=== PATIENT | female | born 1965 | race Caucasian/White ===

== ENCOUNTER → 2020-01-20 10:14 | Outpatient (CLI) | payer BC, SELFPAY ==
--- NOTE | ~2020-01-20 | MM_ITS ---
EXAMINATION: MM screening [facility] BI w stefany HISTORY: Screening mammogram TECHNIQUE: Craniocaudal and mediolateral oblique 3-D tomosynthesis images were obtained and synthetic 2-D images were generated. CAD analysis was submitted and interpreted. COMPARISON: 11/19/2018, 11/12/2017 bilateral digital screening mammogram examinations BREAST PARENCHYMAL COMPOSITION: There are scattered areas of fibroglandular density. FINDINGS: Possible bilateral masses in the upper outer quadrants. Bilateral diagnostic mammography is recommended, with ultrasound if required. IMPRESSION: 1. Possible bilateral upper outer quadrant breast masses 2. Bilateral diagnostic mammography and bilateral breast ultrasound examination are recommended. BI-RADS Category 0: Incomplete: Needs additional imaging evaluation. Reviewed, dictated and finalized at location A.
== END ==
PROVIDERS: Visit Provider Obstetrics & Gynecology
DX: Z12.31 Encounter for screening mammogram for malignant neoplasm of breast (principal); R92.8 Other abnormal and inconclusive findings on diagnostic imaging of breast
CPT/HCPCS: 77063; 77067

== ENCOUNTER → 2020-02-05 09:08 | Outpatient (CLI) | payer BC, SELFPAY ==
--- NOTE | ~2020-02-05 | MMUS_ITS ---
EXAMINATION: MM diagnostic mammo BI, US breast BI limited HISTORY: Follow-up breast asymmetries. TECHNIQUE: Additional 3-D tomosynthesis images of the breasts were performed and synthetic 2-D images were generated. CAD analysis was submitted and interpreted. High resolution bilateral breast ultraso und was performed. COMPARISON: Comparison to multiple prior studies sequentially, with oldest reviewed study dated 09/20. BREAST PARENCHYMAL COMPOSITION: BREAST PARENCHYMAL COMPOSITION: There are scattered areas of fibroglandular density. FINDINGS: MAMMOGRAPHIC FINDINGS: There are persistent asymmetries laterally in both breasts, although no discrete mass, architectural distortion or suspicious calcifications are seen. ULTRASOUND: Bilateral breast ultrasound: There are multiple bilateral simple and complicated cysts of the breasts. The largest measures proxim ally 7 mm at 1:00 position of the left breast, 6 cm from the nipple. No suspicious masses to suggest malignancy. IMPRESSION: 1. No evidence for malignancy in either breast. Benign findings. 2. Routine yearly screening mammogram and regular clinical breast examination are recommended. BI-RADS Category 2: Benign finding(s). Reviewed, dictated and finalized at location A. IMPRESSION: 1. No evidence for malignancy in either breast. Benign findings. 2. Routine yearly screening mammogram and regular clinical breast examination a re recommended. BI-RADS Category 2: Benign finding(s).
== END ==
PROVIDERS: Visit Provider Obstetrics & Gynecology
DX: N63.0 Unspecified lump in unspecified breast (principal)
CPT/HCPCS: 76642; 77066

== ENCOUNTER → 2021-01-26 10:38 | Outpatient (CLI) | payer BC, SELFPAY ==
--- NOTE | ~2021-01-26 | MM_ITS ---
EXAMINATION: MM screening [facility] BI w stefany HISTORY: Screening TECHNIQUE: Craniocaudal and mediolateral oblique 3-D tomosynthesis images were obtained and synthetic 2-D images were generated. CAD analysis was submitted and interpreted. COMPARISON: Comparison to multiple prior studies sequentially, with oldest reviewed study dated 06/2016. BREAST PARENCHYMAL COMPOSITION: There are scattered areas of fibroglandular density. FINDINGS: There is no evidence of suspicious mass, calcification, or architectural distortion to sugg est malignancy in either breast. There has been no suspicious interval change. IMPRESSION: 1. No mammographic evidence of malignancy. 2. Recommend routine screening mammography in one year. BI-RADS Category 1: Negative Reviewed, dictated and finalized at location A.
== END ==
PROVIDERS: PCP Internal Medicine; Visit Provider Obstetrics & Gynecology
DX: Z12.31 Encounter for screening mammogram for malignant neoplasm of breast (principal)
CPT/HCPCS: 77063; 77067

== ENCOUNTER → 2022-06-01 13:22 | Outpatient (CLI) | payer BC, SELFPAY ==
--- NOTE | ~2022-06-01 | MM_ITS ---
EXAMINATION: MM screening [facility] BI w tsefany HISTORY: Screening mammogram TECHNIQUE: Craniocaudal and mediolateral oblique 3-D tomosynthesis images were obtained and synthetic 2-D images were generated. CAD analysis was submitted and interpreted. COMPARISON: 01/26/2021, 02/05/2020, 01/20/2020, 11/19/2018 BREAST PARENCHYMAL COMPOSITION: There are scattered areas of fibroglandular density. FINDINGS: No suspicious mass, calcification, or architectural distortion are identified in either margo ast to suggest malignancy. There has been no suspicious interval change. IMPRESSION: 1. No mammographic evidence of malignancy. 2. Recommend routine screening mammography in one year. BI-RADS Category 1: Negative Reviewed, dictated and finalized at location A. HER SELECTION SPECIALIST
== END ==
PROVIDERS: PCP Internal Medicine; Visit Provider Obstetrics & Gynecology
DX: Z12.31 Encounter for screening mammogram for malignant neoplasm of breast (principal)
CPT/HCPCS: 77063; 77067

== ENCOUNTER 2022-12-02 12:39 | Emergency (ER) | payer MEDICARE, BC, SELFPAY ==
--- NOTE | ~2022-12-02 | XR_ITS ---
XR ankle LT min 3V 12/02/2022 13:22 INDICATION: Left ankle pain PROCEDURE: 4 views left ankle COMPARISON: No prior studies for comparison. FINDINGS: Fracture, dislocation or subluxation is not identified. Ankle mortise intact. Talar dome is normal. Mild lateral soft tissue swelling. No foreign bodies are identified. IMPRESSION: 1: NO ACUTE BONE OR JOINT ABNORMALITY IDENTIFIED. Reviewed, dictated and finalized at location A.
[2022-12-02 12:54] VITALS: BP 124/68; PULSE 55; RESP 18; TEMP 36.9; O2SAT 99
--- NOTE | 2022-12-02 13:09 | ED.LOWEXIN ---
HPI - Extremity Injury (Lower) General Chief Complaint: Extremity Injury, Lower Stated Complaint: Left Foot Pain Time Seen by Provider: 12/02/22 13:00 Source: patient Mode of arrival: ambulatory Limitations: no limitations History of Present Illness HPI Narrative: Paulette is a 57-year-old female patient presenting to the clinic today with complaints of left ankle/foot pain 2-3 days. States no known injury however she has been standing on the side of a hill feeding and dog and thinks he may have injured it at that time. Is having pain and swelling in the left ankle and foot. Denies any known history of gout. No history of osteoarthritis. Related Data Home Medications Medication Instructions Recorded Confirmed amlodipine 5 mg tablet 5 mg PO DAILY 03/13/22 12/02/22 aspirin 325 mg tablet 325 mg PO DAILY 03/13/22 12/02/22 biotin 5,000 mcg disintegrating 10,000 mcg PO DAILY 03/13/22 12/02/22 tablet cyanocobalamin (vitamin B-12) 2,500 mcg PO DAILY 03/13/22 12/02/22 2,500 mcg tablet escitalopram oxalate 5 mg tablet 5 mg PO DAILY 03/13/22 12/02/22 losartan 100 mg tablet 100 mg PO DAILY 03/13/22 12/02/22 omeprazole 20 mg capsule,delayed 20 mg PO DAILY 03/13/22 12/02/22 release oxybutynin chloride 10 mg 10 mg PO DAILY 03/13/22 12/02/22 tablet,extended release 24 hr rosuvastatin 10 mg tablet 10 mg PO DAILY 03/13/22 12/02/22 Allergies Allergy/AdvReac Type Severity Reaction Status Date / Time iodine Allergy Severe Hives Verified 12/02/22 12:52 SHELLFISH Allergy Severe Hives Uncoded 12/02/22 12:52 IODINE OR RELATED PRODUCT Allergy Unknown Hives Uncoded 12/02/22 12:52 BOTH TOPICAL AN IV Review of Systems Review of Systems: Pertinent positives per HPI. Patient denies any fever, chills, rash, headache, visual changes, dizziness, cough, runny nose, sore throat, shortness of breath, chest pain, palpitations, nausea, vomiting, diarrhea, constipation, abdominal pain, or any urinary issues. [facility] Past Medical History Medical History (Updated 12/02/22 @ 13:31 by Leonard Batista, ANDRÉS) Abnormal mammogram 01-20-2020 bilateral breast masses Bilateral dx mammogram and bilateral US done 02/05/2020 negative recommend annual screenings Anxiety and depression High cholesterol History of hypertension controlled with meds Overactive bladder Screening mammogram, encounter for Stroke (02/22/15) February 2015 - no paralysis - short term memory loss Surgical History Surgical History History of arthroscopy knee and shoulder History of endometrial ablation 04/17/07 hscope endometrial ablation/tubal ligation History of head, eyes, ears, nose, and throat (HEENT) surgery (10/15/06) eye surgery--scar tissue History of rotator cuff surgery (12/07/02) History of tubal ligation (04/17/07) Hx of cholecystectomy (09/15/04) S/P thyroid biopsy (06/24/15) benign Family History Family History Mother Hypertension Father Hypertension Grandparent H/O ovarian cancer Maternal grandmother Heart disease maternal grandmother Social History Social History Smoking status: Never smoker Tobacco type: cigarettes Smoking end date: 06/24/99 Alcohol intake: current Alcohol use details: social 1 per month Substance use: never Substance use type: does not use Living arrangements: other Additional living arrangements comments: Occupation/Education: occupation Additional occupation/education comments: homemaker Gender identity (if verbalized by the patient): Female Sexual Orientation (if Verbalized by the Patient): Straight or Heterosexual Comments At the time of my signature, I reviewed and agree with the nursing past medical, surgical, social, and family history. There is no relevant family history per
== END 2022-12-02 13:35 | disposition home or self-care (01) ==
PROVIDERS: Emergency Provider Nurse Practitioner Family; PCP Internal Medicine
DX: M25.572 Pain in left ankle and joints of left foot (principal); M25.472 Effusion, left ankle; Z87.891 Personal history of nicotine dependence; E78.00 Pure hypercholesterolemia, unspecified; I10 Essential (primary) hypertension; Z86.73 Personal history of transient ischemic attack (TIA), and cerebral infarction without residual deficits
CPT/HCPCS: 73610; 99213; G0463

== ENCOUNTER 2024-08-08 08:33 | Outpatient (CLI) | payer BC, MEDICARE, SELFPAY ==
--- NOTE | ~2024-08-08 | MM_ITS ---
EXAMINATION: MM screening [facility] BI w stefany HISTORY: Screening TECHNIQUE: Craniocaudal and mediolateral oblique 3-D tomosynthesis images were obtained and synthetic 2-D images were generated. CAD analysis was submitted and interpreted. COMPARISON: Comparison to multiple prior studies sequentially, with oldest reviewed study dated 11/12. BREAST PARENCHYMAL COMPOSITION: Not dense: There are scattered areas of fibroglandular density. FINDINGS: There is no evidence of suspicious mass, calcification, or architectural distortion to sugg est malignancy in either breast. There has been no suspicious interval change. IMPRESSION: 1. No mammographic evidence of malignancy. 2. Recommend routine screening mammography in one year. BI-RADS Category 1: Negative Reviewed, dictated and finalized at location B. [employer]
== END 2024-08-08 08:34 | disposition home or self-care (01) ==
LOC: MICIMG 08:34
PROVIDERS: PCP Internal Medicine; Visit Provider Internal Medicine
DX: Z12.31 Encounter for screening mammogram for malignant neoplasm of breast (principal)
CPT/HCPCS: 77063; 77067

== ENCOUNTER 2024-11-12 15:12 | Outpatient (CLI) | payer BC, MEDICARE, SELFPAY ==
--- NOTE | ~2024-11-12 | DEXA_ITS ---
Bone Density Report Name: GILBERTO POWER Age: 59 Sex: Female Ethnicity: White Date of : 1965 Indication: postmenopausal; screening for osteoporosis; Referring Provider: JAMIL, HANNAH [place] Study: Bone densitometry was performed. Exam Date: November 12, 2024 Accession number: [id number] Bone Density: Region BMD T-score Z-score Classification AP Spine(L1-L4) 0.844 -1.8 -0.3 Osteopenia Femoral Neck (Left) 0.646 -1.8 -0.5 Osteopenia Total Hip (Left) 0.740 -1.7 -0.6 Osteopenia Femoral Neck (Right) 0.631 -2.0 -0.6 Osteopenia Total Hip (Right) 0.785 -1.3 -0.3 Osteopenia Total Hip Mean 0.763 -1.5 -0.5 Osteopenia World Health Organization criteria for BMD impression classify patients as: Normal (T-score at or above -1.0), Osteopenia (T-score between -1.0 and -2.5), or Osteoporosis (T-score at or below -2.5). 10-year Fracture Risk(1): Major Osteoporotic Fracture 9.4% Hip Fracture 1.1% Reported Risk Factors: [place] (), Neck BMD=0.631, BMI=29.9 (1) FRAX(R) Version 3.08. Fracture probability calculated for an untreated patient. Fracture probability may be lower if the patient has received treatment. Clinical Information Provided by Patient: Has used the following medications: Vitamin D Patient maximum height was 64 Menopause Age: 46 No regular weight bearing exercise Drinks caffeinated beverages Onset of menses at age 12 Number of children 2 Impression: The patient has low bone mass, based on the Right Femoral Neck T-score. The patient has an estimated ten-year risk of hip fracture of 1.1% and an estimated ten-year risk of major fracture of 9.4%, based on the WHO FRAX algorithm. Discussion: BONE DENSITY IS LOW AT ONE OR MORE SKELETAL SITES. This patient's lowest T-score is low at one or more skeletal sites. It meets the World Health Organization's (WHO) criteria for ?low bone mass? (T-score between -1.0 and -2.5). The patient's 10-year risk of fracture as calculated by FRAX is less than the threshold where pharmacological therapy is recommended by the National Osteoporosis Foundation (NOF). However, all treatment decisions require clinical judgment and consideration of individual patient factors, including patient preferences, comorbidities, previous drug use, risk factors not captured in the FRAX model (e.g., frailty, falls, vitamin D deficiency, increased bone turnover, interval significant decline in bone density) and possible under or overestimation of fracture risk by FRAX. The patient should follow a healthful lifestyle (good nutrition with adequate calcium and vitamin D, and appropriate weight-bearing exercise). Follow-Up: Consider repeating this study in 2 to 3 years to reassess this patient's status, or sooner if there is some new clinical indication. Reported by: SARAHI on 11/12/2024 3:45:00 PM. Reviewed, dictated and finalized at location A.
--- OUTSIDE RECORDS SUMMARY | 2024-11-12 15:16 | XMS_ITS | Clinical Summary ---
Author Organization [facility] Address [facility] [place] [address] Care Team Providers Care Inspector Casing Name Role Phone Lluvia Vaughn MD Primary Care Provider + Allergies Active Allergy Reactions Criticality Noted Date Comments Iodine Hives Medium 04/12/2020 Shellfish Derived Hives Medium 04/12/2020 Sulfa (Sulfonamide Antibiotics) Hives Medium 03/25 Medications omeprazole (PriLOSEC) 20 mg capsule 03/10/20 20 Active aspirin 325 mg enteric coated tablet aspirin 325 mg tablet,delayed release Active losartan (COZAAR) 100 mg tablet 100 mg daily 02/22/20 20 Active varicella-zos ter (SHINGRIX) 50 mcg/0.5 mL vaccine Shingrix (PF) 50 mcg/0.5 mL intramuscular suspension, kit Active amLODIPine (NORVASC) 5 mg tabletIndicat ions:hyperten misty Take 1 tablet (5 mg total) by mouth daily 30 tablet 11/02/19 22 Active oxybutynin XL (DITROPAN-XL) 10 mg 24 hr tablet TAKE 1 (ONE) TABLET BY MOUTH DAILY 11/28/19 22 Active rosuvastatin (CRESTOR) 10 mg tablet Take 10 mg by mouth daily 11/10/19 22 Active loratadine 10 mg capsule Take by mouth Activ e multivitamin capsule Take 1 capsule by mouth daily Active escitalopram (LEXAPRO) 5 mg tablet Take 5 mg by mouth daily 01/18/20 22 Active biotin 2,500 mcg capsule Take 2 tablets by mouth Active cyanocobalami n (Vitamin B-12) 1,000 mcg tabletIndicat ions:Preventi on of Vitamin B12 Deficiency Take 1,000 mcg by mouth daily Active metoprolol XL (TOPROL-XL) 50 mg extended release tablet metoprolol succinate ER 50 mg tablet,extended release 24 hr 022 Discontinued Active Problems Problem Noted Date Diagnosed Date Cognitive decline 04/12/2020 Assessment & Plan (05/13/2020 11:26 AM [facility] PHYSICIAN): Patient has a history of static cognitive decline following a stroke in 2015. Contemporary neuroimaging demonstrates chronic ischemic changes nothing acute, and laboratory assessment for medically reversible etiologies for memory impairment are normal. At this point I have counseled patient that unfortunately I do not have much to offer her for the cognitive impairment which she finds persists following her prior stroke 5 years ago. I see no evidence of new interval neurologic demise. Supportive care is indicated from the neurological standpoint. I will see her back in the office as needed. Assessment & Plan (04/12/2020 9:00 AM CDT): Patient has history of chronic cognitive decline following ischemic cerebral infarction in 2014. She notices deficits with calculations, getting occasionally lost in familiar surroundings, and difficulty making financial calculations ultimately leading to the discharge from her employment. She has not noticed any evolution of symptoms or improvement or worsening since 2015. Symptoms have remained essentially static. I will obtain an MRI brain to assess potential etiologies be on the stroke to account for her ongoing cognitive difficulties. Also obtain laboratory assessment looking for medically reversible causes of cognitive impairment. I will see her back thereafter. History of stroke 04/12/2020 Assessment & Plan (05/13/2020 11:26 AM [facility] PHYSICIAN): Patient will continue on aspirin for cerebrovascular prophylaxis in addition anti hypertension and anti lipid therapies. Assessment & Plan (04/12/2020 9:01 AM CDT): Patient reports history of prior cerebral ischemic infarction in 2014 for which she was hospitalized at [facility]. She continues at this time on aspirin for cerebrovascular prophylaxis in addition to any hypertension and anti lipid therapies. She does not have a history of diabetes and is a former tobacco user. Modifiable and non modifiable cerebrovascular risk factors were reviewed with patient for Education of future cerebrovascular prophylaxis. Surgical History Surgery Date Site/Laterality Comments CHOLECYSTECTOMY KNEE SURGERY SHOULDER SURGERY EYE SURGERY Medical History Medical History Date Comments Stroke (cerebrum) (HCC) Hypertension Depression High cholesterol Family History Medical History Relation Name Comments Depression Brother 1 Hyperlipidemia Brother 1 Hypertension Brother 1 PTSD Brother 1 Glaucoma Brother 2 Hypotension Father Kidney disease Father Aneurysm Mother COPD Mother Depression Mother Hypertension Mother Depression Sister 1 Hypertension Sister 1 Seizures Sister 1 Bipolar disorder Sister 2 Depression Sister 2 Hypertension Sister 2 Depression Sister 3 Hyperlipidemia Sister 3 Hypertension Sister 3 Relation Name Status Comments Brother 1 Alive Brother 2 Father Mother Sister 1 Alive Sister 2 Alive Sister 3 Alive Social History Tobacco Use Types Packs/Day Years Used Date Smoking Tobacco: Former Cigarettes Q uit: 12/22/2004 Smokeless Tobacco: Never Personal Safety Answer Date Recorded Getting School Help Needed Not on file 09/06 Comments Unknown Sex and Gender Information Value Date Recorded Sex Assigned at Not on file Legal Sex Female 6:35 PM [facility] PHYSICIAN Gender Identity Female 04/28/2020 7:31 AM [facility] PHYSICIAN Sexual Orientation Straight 04/28/2020 7: 31 AM [facility] PHYSICIAN Obstetrics History Last Filed Vital Signs Vital Sign Reading Time Taken Comments Blood Pressure 102/76 02/19/2022 12:47 PM CDT Pulse 74 02/19/2022 12:47 PM CDT Temperature 36.6 C (97.8 F) 05/13/2020 10:42 AM [facility] PHYSICIAN Respiratory Rate 15 11/01/2021 1:15 PM CDT Oxygen Saturation 99% 02/19/2022 12:47 PM CDT Inhaled Oxygen Concentration - - Weight 78 kg (172 lb) 02/19/2022 12:47 PM CDT Height 160 cm (5' 3 ) 02/19/2022 12:47 PM CDT Body Mass Index 30.47 02/19/2022 12:47 PM CDT Plan of Treatment Health Maintenance Due Date Last Done Comments Breast Cancer Screening-Mammogram 1965 Cervical Cancer Screening 1965 Colon Cancer Screening-Colonoscopy 1965 Depression Screening 1965 Hepatitis C Screening 1963 Hepatitis B Screening 1981 Regular Well Visit/Exam 18-64 1981 Influenza Vaccine (Season Ended) 2025 05/14/2019, 04/09/2018, 06/07/2017, Additional history exists DTaP/Tdap/Td Vaccine (2 - Td or Tdap) 07/24/2026 07/24/2016 Zoster Vaccine Completed 05/14/2019, 01/06/2019 Pneumococcal vaccine <65 Aged Out No longer eligible based on patient's age to complete this topic Insurance [place] [address] [place] [address] [employer] [place] Care Teams Inspector Casing Relationship Specialty Start Date End Date Lluvia Vaughn MD PCP - General Internal Medicine 03/11/20
--- OUTSIDE RECORDS SUMMARY | 2024-11-12 15:16 | XMS_ITS | Continuity of Care Document ---
Author Organization [facility] Address [address] [facility] [facility] [address] [place] [address] Phone Care Team Providers Care Leadership Program Intern Name Role Phone Berta Meyer Unavailable Unavailable Advance Directives Directive Yes / No Effective Date File Name No Information Encounters Encounter Description Practice Location Reason(s) For Visit Diagnoses Date Provider Providers Copied on Encounter [facility], [address] [place], [place], [id number], [place] tel:[phone] [facility] No Information Dec-0 1-[address] [place] [place]. [address] [facility] , [address], [place], [address], [place]. tel:[phone] Family History Family Member Type Diagnosis Age At Onset No Information Payers Payer name Insurance type Covered republican ID Authoriza tion(s) No Information Social History Type Description Quantity Date Captured Comments Sex Female Smoking Status No Information Chief Complaint And Reason For Visit No Information Reason For Referral Reason For Referral No Information History Of Present Illness Encounter Date Complaint History Of Prese nt Illness No Information Functional Status Date Functional Assessmen t No Information Instructions Date Instruction Additional Infor mation No Information Assessments Type Assessment Date No Information Patient Care Teams Name Effective Dates (start - stop) Status Members No Information
--- OUTSIDE RECORDS SUMMARY | 2024-11-12 15:16 | XMS_ITS | Continuity of Care Document ---
Author Organization [facility] Address [address] [place] [address] Phone Care Team Providers Care Educational Consultant Name Role Phone Lluvia Vaughn MD Unavailable Unavailable Allergies, Adverse Reactions, Alerts Substance Reaction Status Criticality lisinopril Cough Active No Information estradiol Active No Information Sulfa (Sulfonamide Antibiotics) Active No Information iodine Hives Active No Information Medications Medication Instructions Dosage Effective Dates (start - stop) Status Comments oxybutynin chloride ER 10 mg tablet,extended release 24 hr take 1 tablet by oral route every day 10 MG - Active Vitamin B-12 1,000 mcg tablet take 1 tablet by mouth once daily - Active AMLODIPINE BESYLATE 5 MG TAB TAKE 1 TABLET BY MOUTH EVERY DAY - Active Cozaar 100 mg tablet TAKE 1 TABLET DAILY - Active omeprazole 20 mg capsule,delayed release take 1 capsule by oral route every day 30 minutes to 1 hour before a meal 20 MG - Active Vitamin D3 125 mcg (5,000 unit) tablet take 1 tablet by oral route every day 1 tablet - Active bupropion HCl XL 300 mg 24 hr tablet, extended release TAKE 1 TABLET DAILY - Active ROSUVASTATIN CALCIUM 10 MG TAB TAKE 1 TABLET BY MOUTH EVERY DAY - Active ESCITALOPRAM 5 MG TABLET TAKE 1 TABLET BY MOUTH EVERY DAY - Active albuterol sulfate HFA 90 mcg/actuation aerosol inhaler TAKE 2 PUFFS BY MOUTH EVERY 4 TO 6 HOURS NEEDED - Active biotin 10 mg tablet 1 tablet daily - A ctive aspirin 325 mg tablet take 1 tablet by o ral route every day 325 MG - Active Procedures Procedure Date Pt inelig neg mahad monoconrado MED LIST DOCD IN [facility] OFFICE [id number] Visit Complexity Inherent To E/ 2024 BODY MASS INDEX DOCD SYST BP LT 130 MM HG DIAST BP < 80 MM HG PREVENTATIVE-EST: 40-64 SYST BP >= 140 MM HG6 IT DIAST BP >= 90 MM HG Pt inelig neg cecilcayetano otoole OFFICE [id number] Visit Complexity Inherent To E/ 2023 BODY MASS INDEX DOCD SYST BP GE 130 - 139MM HG DIAST BP < 80 MM HG OFFICE [id number] BODY MASS INDEX DOCD SYST BP LT 130 MM HG DIAST BP < 80 MM HG PREVENTATIVE-EST: 40-64 Pt inelig neg mahad sydnie OFFICE [id number] BODY MASS INDEX DOCD SYST BP GE 130 - 139MM HG DIAST BP < 80 MM HG EAR WASH, REMOVAL IMPACTED CERUMEN Requi ring Instrumentation PREVENTATIVE-EST: 40-64 BODY MASS INDEX DOCD SYST BP LT 130 MM HG DIAST BP < 80 MM HG OFFICE XTAAP-IKO-ZOYHEVEG BODY MASS INDEX DOCD SYST BP LT 130 MM HG DIAST BP < 80 MM HG Pt inelig neg scrn deprconrado OFFICE [id number] BODY MASS INDEX DOCD SYST BP LT 130 MM HG DIAST BP < 80 MM HG ROUTINE VENIPUNCTURE COVID-19, Amplified Probe Technique OFFICE [id number] BODY MASS INDEX DOCD SYST BP GE 130 - 139MM HG DIAST BP < 80 MM HG Pt inelig neg scrn deprconrado PREVENTATIVE-EST: 40-64 BODY MASS INDEX DOCD SYST BP GE 130 - 139MM HG DIAST BP < 80 MM HG Pt inelig neg scrn sydnie OFFICE [id number]-[id number] BODY MASS INDEX DOCD SYST BP GE 130 - 139MM HG DIAST BP 80-89 MM HG Brief Emotional/Behavioral A ssessment, With Scoring/Doct, [facility] screen doc OFFICE [id number] BODY MASS INDEX DOCD SYST BP LT 130 MM HG DIAST BP < 80 MM HG Pt inelig neg scrn deprconrado PREVENTATIVE-EST: 40-64 BODY MASS INDEX DOCD SYST BP GE 130 - 139MM HG DIAST BP 80-89 MM HG OFFICE [id number]-NJV-[id number] BODY MASS INDEX DOCD SYST BP LT 130 MM HG DIAST BP < 80 MM HG Pt inelig neg scrn sydnie OFFICE [id number] BODY MASS INDEX DOCD SYST BP GE 130 - 139MM HG DIAST BP 80-89 MM HG Pt inelig neg scrn depres OFFICE [id number] BODY MASS INDEX DOCD SYST BP GE 130 - 139MM HG DIAST BP 80-89 MM HG Advance Directives Directive Yes / No Effective Date File Name Life Support Not Answered N/A N/A Intubation Not Answered N/A N/A Antibiotics Not Answered N/A N/A IV Fluid Support Not Answered N/A N/A Tube Feed Not Answered N/A N/A Other Directive N/A N/A WARNING:The information contained in this section is historical and is provided for information only and does not constitute a legal document or any assurance that the information is still accurate. Please verify the information with the broderick of the legal document before using it for clinical purposes. Encounters Encounter Description Practice Location Reason(s) For Visit Diagnoses Date Provider Providers Copied on Encounter [facility], [address], [place], [place], [address] , tel: [phone] [facility] Asymptomatic menopausal state 5 Roderick Teixeira. [address] [place], [place], [address], [place]. tel:[phone] OFFICE [id number]-CGP-HL TAILED [facility], [address], [place], [place], [address] , tel: [phone] [facility] f/u chronic conditions (chief complaint) Hyperlipidemia, unspecified hyperlipidemia typeEssential hypertensionMajor depressive disorder in partial remission, unspecified whether recurrentGastroes ophageal reflux disease, esophagitis presence not specifiedCerebrov ascular diseaseHistory of CVA (cerebrovascular accident)Hypergly cemiaAcute pain of left kneeMultiple thyroid nodules 5 Roderick Teixeira. [address] [place], [place], [address], [place]. tel:[phone] Referring Provider: Lluvia Hoff, [address] [place], [address] . tel:[phone] [facility], [address], [place], [place], [address] , [place] tel: [phone] [facility] No Information 5 Roderick Teixeira. [address] [place], [address], [place]. tel:[phone] [facility], [address], [place], [place], [address] , tel: [phone] [facility] No Information 4 Roderick Teixeira. [address] [place], [place], [address], [place]. tel:[phone] [facility], [address], [place], [place], [address] , tel: [phone] [facility] No Information 4 Roderick Teixeira. [address] [place], [address], [place]. tel:[phone] PREVENTATIVE -EST: 40-64 [facility], [address], [place], [place], [address] , [place] tel: [phone] [facility] preventive exam (chief complaint)Chr onic Conditions (chief complaint) Body mass index [BMI] 29.0-29.9, adultHyperlipidem ia, unspecified hyperlipidemia typeEssential hypertensionRouti ne medical examPersistent coughThrombocytop eniaAsymptomatic menopausal stateEncounter for screening mammogram for malignant neoplasm of breast 4 Roderick Teixeira. [address] [place], [place], [address], [place]. tel:[phone] Referring Provider: Lluvia Hoff, [address] [place], [address] . tel:[phone] [facility], [address], [place], [place], [address] , tel: [phone] [facility] Essential hypertensionHyper lipidemia, unspecified hyperlipidemia typeMultiple thyroid nodulesBlood tests for routine general physical examination 4 Roderick Teixeira. [address] [place], [place], [address], [place]. tel:[phone] [facility], [address], [place], [place], [address] , tel: [phone] [facility] No Information 4 Roderick Lluvia. [address] [place], [place], [address], [place]. tel:[phone] [facility], [address], [place], [place], [address] , [place] tel: [phone] [facility] No Information 4 Roderick Teixeira. [address] [place], [address], [place]. tel:[phone] [facility], [address], [place], [place], [address] , tel: [phone] [facility] No Information 4 Kathy Aceves. [address] [place], [place], [address], [place]. tel:[phone] [facility], [address], [place], [place], [address] , [place] tel: [phone] [facility] No Information 4 Roderick Teixeira. [address] [place], [place], [address], [place]. tel:[phone] OFFICE NQYTT-LSY-TA TAILED [facility], [address], [place], [place], [address] , tel: [phone] [facility] Chronic conditions (chief complaint)Chr onic Conditions (chief complaint) Body mass index [BMI] 27.0-27.9, adultHyperlipidem ia, unspecified hyperlipidemia typeEssential hypertensionMajor depressive disorder in partial remission, unspecified whether recurrentGastroes ophageal reflux disease, esophagitis presence not specifiedCerebrov ascular diseaseHistory of CVA (cerebrovascular accident)Multiple thyroid nodules 4 Chaffeeluis Teixeira. [address] [place], [place], [address], [place]. tel:[phone] Referring Provider: Lluvia Hoff, [address] [place], [address] . tel:[phone] [facility], [address], [place], [place], [address] , tel: [phone] [facility] Essential hypertensionHyper glycemia October-0 4 Roderick Teixeira. [address] [place], [place], [address], [place]. tel:[phone] OFFICE FRSSP-FVK-GD PANDED [facility], [address], [place], [place], [address] , tel: [phone] [facility] Evaluate rash (chief complaint) Body mass index [BMI] 27.0-27.9, adultRash and nonspecific skin eruption Sep-2 4 Roderick Tiexeira. [address] [place], [place], [address], . tel:[phone] Referring Provider: Lluvia Hoff, [address] [place], [address] . tel:[phone] [facility], [address], [place], [place], [address] , tel:[phone] [facility] No Information 4 Kathy Aceves. [address] [place], [place], [address], . tel:[phone] [facility], [address], [place], [place], [address] , [place] tel:[phone] [facility] No Information 3 Roderick Teixeira. [address] [place], [place], [address], [place]. tel:[phone] PREVENTATIVE -EST: 40-64 [facility], [address], [place], [place], [address] , tel:[phone] [facility] preventive exam (chief complaint)Chr onic Conditions (chief complaint)chr onic conditions (chief complaint) Essential hypertensionGastr oesophageal reflux disease, esophagitis presence not specifiedMajor depressive disorder in partial remission, unspecified whether recurrentHyperlip idemia, unspecified hyperlipidemia typeRoutine medical examBody mass index [BMI] 27.0-27.9, adultColon cancer screening 3 Kathy Lopezsia. [address] [place], [place], [address], . tel:[phone] Referring Provider: Lluvia Hoff, [address] [place], [address] . tel:[phone] [facility], [address], [place], [place], [address] , [place] tel: [phone] [facility] Essential hypertensionHyper lipidemia, unspecified hyperlipidemia typeAnnual physical examThyroid nodule 3 Roderick Teixeira. [address] [place], [place], [address], [place]. tel:[phone] OFFICE YHZZA-INR-KE TAILED [facility], [address], [place], [place], [address] , [place] tel: [phone] [facility] Chronic Conditions (chief complaint) Elevated blood sugarEssential hypertensionHyper lipidemia, unspecified hyperlipidemia typeMajor depressive disorder in partial remission, unspecified whether recurrentGastroes ophageal reflux disease, esophagitis presence not specifiedBody mass index [BMI] 30.0-30.9, adult Sep- 3 Kathy Aceves. [address] [place], [place], [address], [place]. tel:[phone] Referring Provider: Lluvia Hoff, [address] [place], [address] . tel:[phone] [facility], [address], [place], [place], [address] , [place] tel: [phone] [facility] Essential hypertensionHyper glycemia 3 Roderick Teixeira. [address] [place], [place], [address], [place]. tel:[phone] [facility], [address], [place], [place], [address] , tel: [phone] [facility] Cerumen impaction (chief complaint) Body mass index [BMI] 29.0-29.9, adultRight ear impacted cerumenHearing loss of right ear, unspecified hearing loss type 2 Kathy Aceves. [address] [place], [place], [address], [place]. tel:[phone] Referring Provider: Lluvia Hoff, [address] [place], [address] . tel:[phone] PREVENTATIVE -EST: 40-64 [facility], [address], [place], [place], [address] , tel: [phone] [facility] preventive exam (chief complaint) Body mass index [BMI] 29.0-29.9, adultHyperlipidem ia, unspecified hyperlipidemia typeEssential hypertensionRouti ne medical examElevated blood sugarRight ear impacted cerumen 2 Roderick Teixeira. [address] [place], [place], [address], [place]. tel:[phone] Referring Provider: Lluvia Hoff, [address] [place], [address] . tel:[phone] [facility], [address], [place], [place], [address] , tel: [phone] [facility] Annual physical examThyroid noduleHyperlipide kari, unspecified hyperlipidemia typeEssential hypertension 2 Roderick Teixeira. [address] [place], [place], [address], [place]. tel:[phone] OFFICE KCWMC-CEJ-DA TAILED [facility], [address], [place], [place], [address] , [place] tel: [phone] [facility] ER f/u (chief complaint) Chest pain, unspecified typeEssential hypertensionHyper lipidemia, unspecified hyperlipidemia typeBody mass index [BMI] 30.0-30.9, adult 2 Kathy Aceves. [address] [place], [place], [address], [place]. tel:[phone] Referring Provider: Lluvia Hoff, [address] [place], [address] . tel:[phone] [facility], [address], [place], [place], [address] , tel: [phone] [facility] ER f/u (chief complaint) Chest pain, unspecified typeEssential hypertension 2 Chavez Yola. [address] [place], [place], [address], . tel:[phone] OFFICE JWGHN-PRP-KJ [facility], [address], [place], [place], [address] , tel: [phone] [facility] Chronic Conditions (chief complaint)6 mo followup of chronic conditions (chief complaint) Hyperlipidemia, unspecified hyperlipidemia typeMajor depressive disorder in partial remission, unspecified whether recurrentEssentia l hypertensionGastr oesophageal reflux disease, esophagitis presence not specifiedBody mass index [BMI] 30.0-30.9, adult 2 Chavez Yola. [address] [place], [place], [address], . tel:[phone] Referring Provider: Lluvia Hoff, [address] [place], [address] . tel:[phone] [facility]ICE [facility], [address], [place], [place], [address] , tel: [phone] [facility] cough (chief complaint) Cough 2 Chavez Yola. [address] [place], [place], [address], [place]. tel:[phone] Referring Provider: Lluvia Hoff, [address] [place], [address] . tel:[phone] PREVENTATIVE -EST: 40-64 [facility], [address], [place], [place], [address] , tel: [phone] [facility] Preventative exam (chief complaint) Hyperlipidemia, unspecified hyperlipidemia typeEssential hypertensionRouti ne medical examMajor depressive disorder in partial remission, unspecified whether recurrent Sep-2 1 Roderick Teixeira. [address] [place], [place], [address], [place]. tel:[phone] Referring Provider: Lluvia Hoff, [address] [place], [address] . tel:[phone] [facility], [address], [place], [place], [address] , [place] tel: [phone] [facility] Essential hypertensionHyper lipidemia, unspecified hyperlipidemia typeThyroid nodule Sep-2 1 Roderick Teixeira. [address] [place], [place], [address], [place]. tel:[phone] OFFICE FBFRE-TVN-GT PANDED [facility], [address], [place], [place], [address] , tel: [phone] [facility] F/u depression (chief complaint) Moderately severe major depressionBody mass index (BMI) 30.0-30.9, adult Apr- 1 Kathy Aceves. [address] [place], [place], [address], [place]. tel:[phone] Referring Provider: Lluvia Hoff, [address] [place], [address] . tel:[phone] OFFICE POBVA-GZI-WT [facility], [address], [place], [place], [address] , tel: [phone] [facility] chronic conditions (chief complaint)Chr onic Conditions (chief complaint) Body mass index (BMI) 30.0-30.9, adultHyperlipidem ia, unspecified hyperlipidemia typeEssential hypertensionHisto ry of cerebrovascular accidentModeratel y severe major depression Aug- 1 Roderick Teixeira. [address] [place], [place], [address], [place]. tel:[phone] Referring Provider: Lluvia Hoff, [address] [place], [address] . tel:[phone] [facility], [address], [place], [place], [address] , tel:[phone] [facility] No Information Aug- 1 Roderick Teixeira. [address] [place], [place], [address], [place]. tel:[phone] [facility], [address], [place], [place], [address] , tel: [phone] [facility] Essential hypertension Aug- 1 Roderick Teixeira. [address] [place], [place], [address], [place]. tel:[phone] PREVENTATIVE -EST: 40-64 [facility], [address], [place], [place], [address] , [place] tel: [phone] [facility] Px (chief complaint) Routine medical examHyperlipidemi a, unspecified hyperlipidemia typeMajor depression in remissionMild cognitive impairmentEssenti al hypertensionHisto ry of cerebrovascular accidentGastroeso phageal reflux disease, esophagitis presence not specifiedBody mass index (BMI) 29.0-29.9, adult Sep-1 - 0 Chavez Yola. [address] [place], [address], [place]. tel:[phone] Referring Provider: Lluvia Hoff, [address] [place], [address] . tel:[phone] [facility], [address], [place], [place], [address] , [place] tel: [phone] [facility] Adult general medical examEssential hypertensionThyro id noduleHyperlipide kari, unspecified hyperlipidemia type Sep-0 0 Roderick Teixeira. [address] [place], [place], [address], [place]. tel:[phone] OFFICE KRHCR-CLI-SP PANDED [facility], [address], [place], [place], [address] , [place] tel: [phone] [facility] rash bilateral palms (chief complaint) Rash Aug- 0-202 0 Kathy Aceves. [address] [place], [place], [address], . tel:[phone] Referring Provider: Lluvia Hoff, [address] [place], [address] . tel:[phone] [facility], [address], [place], [place], [address] , [place] tel: [phone] [facility] No Information 9 Roderick Teixeira. [address] [place], [place], [address], [place]. tel:[phone] OFFICE XQQPD-IQJ-YI [facility], [address], [place], [place], [address] , [place] tel: [phone] [facility] Disability Forms (chief complaint)Chr onic Conditions (chief complaint) Body mass index (BMI) 30.0-30.9, adultHistory of cerebrovascular accidentMild cognitive impairmentMajor depression in remissionEssentia l hypertensionHyper lipidemia, unspecified hyperlipidemia type 9 Roderick Teixeira. [address] [place], [place], [address], [place]. tel:[phone] Referring Provider: Lluvia Hoff, [address] [place], [address] . tel:[phone] OFFICE KEYYI-TZB-YX [facility], [address], [place], [place], [address] , [place] tel: [phone] [facility] 4 month (chief complaint)Chr onic Conditions (chief complaint) Essential hypertensionMajor depressive disorder in partial remission, unspecified whether recurrentHyperlip idemia, unspecified hyperlipidemia type 9 Roderick Teixeira. [address] [place], [place], [address], [place]. tel:[phone] Referring Provider: Lluvia Hoff, [address] [place], [address] . tel:[phone] [facility], [address], [place], [place], [address] , tel: [phone] [facility] Encntr screen mammogram for malignant neoplasm of breastBody mass index (BMI) 30.0-30.9, adultModerate major depressionBenign essential hypertensionRouti ne medical exam 9 Roderick Teixeira. [address] [place], [place], [address], . tel:[phone] Referring Provider: Lluvia Hoff, [address] [place], [address] . tel:[phone] [facility], [address], [place], [place], [address] , tel: [phone] [facility] Essential hypertensionOther hyperlipidemia 9 Roderick Teixeira. [address] [place], [place], [address], . tel:[phone] [facility], [address], [place], [place], [address] , tel: [phone] [facility] Body mass index (BMI) 30.0-30.9, adultEssential hypertensionHyper lipidemia, unspecified hyperlipidemia typeGastro-esopha geal reflux disease without esophagitis 8 Roderick Teixeira. [address] [place], [place], [address], [place]. tel:[phone] Referring Provider: Lluvia Hoff, [address] [place], [address] . tel:[phone] [facility], [address], [place], [place], [address] , tel: [phone] [facility] Hyperlipidemia, unspecified hyperlipidemia typeEssential hypertension 8 Roderick Teixeira. [address] [place], [place], [address], . tel:[phone] Referring Provider: Lluvia Hoff, [address] [place], [address] . tel:[phone] [facility], [address], [place], [place], [address] , tel: [phone] [facility] Essential (primary) hypertensionOther hyperlipidemiaGas tro-esophageal reflux disease without esophagitisPrsnl hx of TIA (TIA), and cereb infrc w/o resid deficitsNonrheuma tic aortic (valve) insufficiency 8 Anmol Hoyt. [address] [place], [place], [address]. tel:[phone] Referring Provider: Evelina Olivera, [place], [address] . tel:[phone] [facility], [address], [place], [place], [address] , tel: [phone] [facility] Hyperlipidemia, unspecified hyperlipidemia typeEssential hypertensionLong term use of drug 8 Olivera Evelina. [address] [place], [place], [address]. tel:[phone] [facility], [address], [place], [place], [address] , tel: [phone] [facility] Encounter for preventive health examinationEssent ial (primary) hypertensionOther hyperlipidemiaDys thymic disorderPrsnl hx of TIA (TIA), and cereb infrc w/o resid deficits 8 Olivera Evelina. [address] [place] [address], [address]. tel:[phone] Referring Provider: Evelina Olivera, [place], [address] . tel:[phone] [facility], [address], [place], [place], [address] , tel:[phone] [facility] Essential hypertensionEncou nter for long-term (current) use of other medicationsMixed hyperlipidemia 8 [facility] Evelina. [address] [place], [place], [address]. tel:[phone] [facility], [address], [place], [place], [address] , tel:[phone] [facility] Essential (primary) hypertensionOther hyperlipidemiaGas tro-esophageal reflux disease without esophagitisOther specified anxiety disordersThyroid nodule 7 Olivera Evelina. [address] [place], [place], [address]. tel:[phone] Referring Provider: [place], [address] . tel:[phone] [facility], [address], [place], [place], [address] , tel: [phone] [facility] Other hyperlipidemiaEnc ounter for long-term (current) use of other medications 7 Olivera Evelina. [address] [place], [place], [address]. tel:[phone] [facility], [address], [place], [place], [address] , tel: [phone] [facility] Essential (primary) hypertensionOther hyperlipidemiaDys thymic disorderGastro-es ophageal reflux disease without esophagitis 7 Anmol Wrighth. [address] [place], [place], [address]. tel:[phone] Referring Provider: Evelina Olivera, [place], [address] . tel:[phone] [facility], [address], [place], [place], [address] , tel: [phone] [facility] Breast asymmetry Sep- 7 Olivera Evelina. [address] [place], [place], [address]. tel:[phone] [facility], [address], [place], [place], [address] , tel: [phone] [facility] Prsnl hx of TIA (TIA), and cereb infrc w/o resid deficits 7 Olivera Evelina. [address] [place], [place], [address]. tel:[phone] [facility], [address], [place], [place], [address] , [place] tel: [phone] [facility] Encounter for preventive health examinationEssent ial (primary) hypertensionOther hyperlipidemiaPrs nl hx of TIA (TIA), and cereb infrc w/o resid deficitsGastro-es ophageal reflux disease without esophagitisDysthy gary disorderEncounter for immunization 7 Olivera Evelina. [address] [place], [place], [address]. tel:[phone] Referring Provider: Evelina Olivera, [address] [place], [address] . tel:[phone] [facility], [address], [place], [place], [address] , [place] tel: [phone] [facility] Essential hypertensionEncou nter for long-term (current) use of other medicationsHyperl ipidemia, unspecified hyperlipidemia type 7 Oliveramichael Wrighth. [address] [place], [place], [address]. tel:[phone] [facility], [address], [place], [place], [address] , [place] tel: [phone] [facility] Essential (primary) hypertensionOther hyperlipidemiaOth er depressive episodesPrsnl hx of TIA (TIA), and cereb infrc w/o resid deficitsGastro-es ophageal reflux disease without esophagitis 6 Anmol Wrighth. [address] [place], [place], [address]. tel:[phone] Referring Provider: Evelina Olivera, [address] [place], [address] . tel:[phone] [facility], [address], [place], [place], [address] , tel: [phone] [facility] Encounter for long-term (current) use of other medicationsOther hyperlipidemia 6 Anmol Wrighth. [address] [place], [place], [address]. tel:[phone] [employer], [address], [place], [place], [address] , [place] tel: [phone] [place] No Information 6 Olivera Evelina. [address] [place], [place], [address]. tel:[phone] [employer], [address], [place], [place], [address] , tel: [phone] [place] Essential (primary) hypertension 6 Olivera Evelina. [address] [place], [place], [address]. tel:[phone] Referring Provider: Evelina Olivera, [place], [address] . tel:[phone] [facility], [address], [place], [place], [address] , [place] tel: [phone] [place] Essential (primary) hypertensionOther hyperlipidemiaPrs nl hx of TIA (TIA), and cereb infrc w/o resid deficitsGastro-es ophageal reflux disease without esophagitisOther depressive episodes 6 Olivera Evelina. [address] [place], [place], [address]. tel:[phone] Referring Provider: Evelina Olivera, [place], [address] . tel:[phone] [facility], [address], [place], [place], [address] , [place] tel: [phone] [place] Essential (primary) hypertensionOther specified anxiety disorders Sep- 6 Olivera Evelina. [address] [place], [place], [address]. tel:[phone] Referring Provider: Evelina Olivera, [place], [address] . tel:[phone] [facility], [address], [place], [place], [address] , [place] tel: [phone] [place] Breast asymmetry Aug- 6 Olivera Evelina. [address] [place], [place], [address]. tel:[phone] [facility], [address], [place], [place], [address] , [place] tel:[phone] [facility] Essential (primary) hypertensionGastr o-esophageal reflux disease without esophagitis Fe 6 Olivera Evelina. [address] [place], [place], [address]. tel:[phone] Referring Provider: [place], [address] . tel:[phone] [employer], [address], [place], [place], [address] , tel: [phone] [place] Encounter for preventive health examinationEssent ial (primary) hypertensionPerso nal history of transient ischemic attack (TIA), and cerebral infarction without residual deficitsOther specified anxiety disordersOther hyperlipidemiaThy roid nodule 6 Oliveramichael Wrighth[address] [place], [place], [address]. tel:[phone] Referring Provider: [place], [address] . tel:[phone] [employer], [address], [place], [place], [address] , [place] tel: [phone] [place] Routine general medical examination at health care facilityOther hyperlipidemia 6 Olivera Evelina. [address] [place], [place], [address]. tel:[phone] [employer], [address], [place], [place], [address] , [place] tel: [phone] [facility] Essential (primary) hypertensionPerso nal history of transient ischemic attack (TIA), and cerebral infarction without residual deficitsOther specified anxiety disorders 5 Olivera Evelina. [address] [place], [place], [address]. tel:[phone] Referring Provider: [place], [address] . tel:[phone] [facility], [address], [place], [place], [address] , [place] tel: [phone] [place] Fatigue, unspecified type 3-201 5 Olivera Evelina. [address] [place], [place], [address]. tel:[phone] Referring Provider: [place], [address] . tel:[phone] [employer], [address], [place], [place], [address] , tel: [phone] [place] Essential (primary) hypertension 5 Anmol Hoyt. [address] [place], [place], [address]. tel:[phone] Referring Provider: Evelina Olivera, [address] [place], [address] . tel:[phone] [employer], [address], [place], [place], [address] , [place] tel: [phone] [place] Essential hypertensionHisto ry of CVA (cerebrovascular accident)CoughThy roid noduleHLD (hyperlipidemia)P alpitation Feb- 5 [place]ie Bragg. [address] [facility], [facility], [place], [address], [place]. tel:[phone] Referring Provider: Evelina Olivera, [address] [place], [address] . tel:[phone] [employer], [address], [place], [place], [address] , [place] tel: [phone] [place] Unspecified essential hypertensionPalpi tation 5 Anmol Hoyt. [address] [place], [place], [address]. tel:[phone] Referring Provider: Evelina Olivera, [address] [place], [address] . tel:[phone] [employer], [address], [place], [place], [address] , [place] tel: [phone] [place] Unspecified essential hypertension 5 Anmol Hoyt. [address] [place], [place], [address]. tel:[phone] Referring Provider: Evelina Olivera, [address] [place], [address] . tel:[phone] [employer], [address], [place], [place], [address] , [place] tel: [phone] [place] Routine Medical ExamUnspecified essential hypertension 9 5 Olivera Evelina. [address] [place], [place], [address]. tel:[phone] Referring Provider: Evelina Olivera, [address] [place], [address] . tel:[phone] [facility], [address], [place], [place], [address] , tel: [phone] [place] Acute bronchitis May-3 0201 4 Olivera Evelina. [address] [place], [place], [address]. tel:[phone] Referring Provider: Evelina Olivera, [address] [place], [address] . tel:[phone] [facility], [address], [place], [place], [address] , tel: [phone] [place] Unspecified essential hypertension 5201 4 Olivera Evelina. [address] [place], [place], [address]. tel:[phone] Referring Provider: Evelina Olivera, [place], [address] . tel:[phone] [facility], [address], [place], [place], [address] , tel: [phone] [facility] HTN 4 Olivera Evelina. [address] [place], [place], [address]. tel:[phone] Referring Provider: [place], [address] . tel:[phone] [facility], [address], [place], [place], [address] , tel: [phone] [facility] HTN 201 4 Anmol Wrighth[address] [place], [place], [address]. tel:[phone] Referring Provider: Evelina Olivera, [address] [place], [address] . tel:[phone] [facility], [address], [place], [place], [address] , tel: [phone] [facility] Encounter for screening colonoscopy 3 Olivera Evelina. [address] [place], [place], [address]. tel:[phone] [facility], [address], [place], [place], [address] , [place] tel: [phone] [facility] Routine Medical ExamEssential hypertensionRouti ne Medical Exam 3 Olivera Evelina. [address] [place], [place], [address]. tel:[phone] Referring Provider: Evelina Olivera, [address] [place] [address], [address] . tel:[phone] [employer], [address], [place], [place], [address] , [place] tel: [phone] [place] CHEST PAIN NEC 0 [facility] Evelina. [address] [place], [place], [address]. tel:[phone] [employer], [address], [place], [place], [address] , [place] tel: [phone] [place] SCREEN LIPOID DISORDERSROUTINE MEDICAL EXAM 0 [facility]. [address] [place], [place], [address]. tel:[phone] [employer], [address], [place], [place], [address] , [place] tel: [phone] [place] ALLERGIC RHINITIS NOSGENERAL OSTEOARTHROSISSCR EEN MAL NEOP-RECTUMPALPIT ATIONS 0 [facility]. [address] [place], [place], [address]. tel:[phone] Family History Family Member Type Diagnosis Age At Onset Mother Problem (finding) 2 kids Problem (finding) Alive and well sister #3 Problem (finding) Alive and well Father Problem (finding) hypertension Problem (finding) Family history of premature coronary heart disease Sister #1 Problem (finding) seizure disorder 2 brothers Problem (finding) Alive and well Problem (finding) Family history of strok e Father Problem (finding) Hearing impairment Mother Problem (finding) osteoarthritis Father Problem (finding) renal cell carcinoma (C ause Of ) Mother Problem (finding) depression Father Problem (finding) raised blood lipids Mother Problem (finding) raised blood lipids Mother Problem (finding) hypertension sister #2 Problem (finding) manic-depressive state Father Problem (finding) Mother Problem (finding) aortic aneurysm (Cause Of ) Mother Problem (finding) osteoporosis Father Problem (finding) Renal disease sister #1 Problem (finding) depression Problem (finding) Family history of coronary arteriosclerosis Immunizations Vaccine Date Status Comments Influenza, MDCK, trivalent, PF administer ed Note: [facility] ; Source: Other Provider Influenza, injectable, MDCK, preservative free, quadrivalent administered Note: [facility] ; Source: Other Provider J&J COVID/Adenovirus Vaccine [id number] viral particles/0.5mL administered Note: YOHANNES GONZALEZ CT ; Source: Public Agency Zoster administered Note: [facility] ; Jennifer rce: Source Unspecified Fluzone Quad, preservative free, split virus, 0.5mL dosage administered Note: [facility] ; Source: Source Unspecified SHINGRIX (Zoster vaccine recombinant, adjuvanted) administered Note: [facility] ; Jennifer rce: Source Unspecified Fluzone Quad, split virus, 0.5mL dosage administered Source: New Immuniza tion Record Tdap administered Source: New Imm unization Record flu (split) (3 yrs or older) administered Source: Other Provider Payers Payer name Insurance type Covered libertarian ID Authoriza tion(s) [employer] [facility] [id number] [place] [id number] [place] [id number] [facility] [id number] Social History Type Description Quantity Date Captured Comments Alcohol Use Details Unknown Caffeine Use Details Unknown Tobacco Use Status No Information Smoking Status No Information Sex Female Chief Complaint And Reason For Visit No Information Reason For Referral Reason For Referral No Information Plan Of Treatment Date Type Action Status Goal Dietary manageme nt education, guidance, and counseling completed Goal Dietary manageme nt education, guidance, and counseling completed Goal Dietary manageme nt education, guidance, and counseling completed Goal Dietary manageme nt education, guidance, and counseling completed Goal Dietary manageme nt education, guidance, and counseling completed Goal Dietary manageme nt education, guidance, and counseling completed Goal Dietary manageme nt education, guidance, and counseling completed Goal Dietary manageme nt education, guidance, and counseling completed Goal Dietary manageme nt education, guidance, and counseling completed Goal Dietary manageme nt education, guidance, and counseling completed Goal Dietary manageme nt education, guidance, and counseling completed Goal Dietary manageme nt education, guidance, and counseling completed Goal Dietary manageme nt education, guidance, and counseling completed Referral Referred To: Lillie [address]ba [address] [place], [phone] Ordered: Chest x-ray, PA and lateral ordered Referral Referred To: [address] [place], [phone] Ordered: SCREENING MAMMOGRAM (CAD) ordered Referral Referred To: [address] [place], [phone] Ordered: DEXA of spine and hip ordered Referral Referred To: Macario Terry MD [address] [place], [phone] Ordered: Referrals: Gastroenterology. Macario Terry MD. Evaluation/diagnostic/treatment - Level 3 ordered Referral Referred To: Dorene Augustin MD [address] [facility]
[address] [place], [phone] Ordered: Referrals: Cardiology. Dorene Augustin MD. Evaluation/diagnostic/treatment - Level 3 ordered Referral Referred To: [facility] ([place]) Ordered: Referrals: Mental Health Counselor. [facility] ([place]). Evaluation/diagnostic/treatment - Level 3 ordered Referral Referred To: Tino Natarajan MD [address] [place] [address]
[place], [phone] Ordered: Referrals: Neurology. Tino Natarajan MD. Evaluation/diagnostic/treatment - Level 3 ordered Referral Referred To: Shilpi Bonds DO [address] [place], [address] Ordered: Referrals: Dermatology. Shilpi Bonds DO. Consult - Level 1 Appointment date/timeframe: 09/07/2019 ordered Appointment Paulette Morin BOOKED Future Order: Lab Order BMP ([id number]), O rdered on: Ordered Future Order: Lab Order Lipid Pa ashley ([id number]), Collected on: , Sent on: Sent History Of Present Illness Encounter Date Complaint History Of Prese nt Illness f/u chronic conditions Essential hypertensionStableBP stable on losartan and amlodipine without SE'sDue for BMPHyperlipidemia, unspecified hyperlipidemia typeStablestable on rosuvastatin without SE'sCerebrovascular diseaseStableMRI 04/28/20- lipids controlled on rosuvastatinHas been on aspirin 325mg daily since her prior CVANo new neurologic deficitsHistory of CVA (cerebrovascular accident)StableHad prior CVA- no residual deficitsstable on aspirin and rosuvastatin without Se'sMultiple thyroid nodulesStablenoted on prior thyroid u/s- no difficulty swallowing or neck swellingMajor depressive disorder in partial remission, unspecified whether recurrentStableFeels mood has been stable on lexapro and bupropion without Se'sGastroesophageal reflux disease, esophagitis presence not specifiedStablestable on omeprzole without SE'sStates she has been having left knee swelling for past week- new onsetstates she walks her dog regularly and noticed swelling in the left knee after a walk with her dog up and down hills in her yard.No known injury. No fall.Has noticed improvement with ice and elevation. Chronic Conditions *See Chronic Conditions HPI preventive exam Currently pregna nt: no. : 2. Parity: Term: 2.Postmenopausal. Pertinent negatives include abnormal vaginal bleeding. Diet healthy.The patient states Patient's exercise level is moderate and frequency is 3-4 times/week. The patient no longer uses tobacco. The patient does drink alcohol. Additional information: Routine PE done todayTries to stay activeFasting labs reviewed with ptDue for mammogram and bone densityColonoscopy UTD. Chronic Conditions *See Chronic Conditions HPI Chronic conditions Evaluate rash Pt. here with ra sh on her abdomen in the skin folds of lower abdomen that started yesterday. She's been putting Neosporin on it and that's not helping. She also said there's an odor to the rash. Not much itching but mildly tender when jeans rub on the skin. chronic conditions *See Chronic Conditions HPI Chronic Conditions *See Chronic Conditions HPI preventive exam : 2. Leatha ty: Term: 2.Postmenopausal. Diet healthy.The patient states Patient's exercise level is moderate and frequency is 3-4 times/week. The patient no longer uses tobacco. The patient does drink alcohol. Additional information: Colonoscopy - DUE IN 07/2023Mammogram - DUE IN Mayap - following with gynCOVID - DUE FOR BOOSTERFluShingrix - UTDTdap - UTD 2017. Chronic Conditions *See Chronic Conditions HPI Cerumen impaction The patient co mplains of cerumen in the right ear that began gradually.The patient is unchanged. The symptoms occur constantly and are unchanged. The patient reports no aggravating factors. The symptoms are not improved with hydrogen peroxide, OTC wax removal kits or regular ear washes. The patient is also experiencing hearing loss. The patient denies ear drainage and otalgia. Additional information: Patient has been using ear wax softening drops. preventive exam : 2. Leatha ty: Term: 2.Postmenopausal. Diet healthy.The patient states her exercise level is moderate and frequency is 3-4 times/week. The patient no longer uses tobacco. She does drink alcohol. Additional information: Pt. here for PE.Had labs done last week reviewed with pt.Has mammogram scheduled in May.Sees winemaker for routine pap smears UTD per pt.Colonoscopy UTD due in 2023.Has Htn with BP stable on meds without SE's.Has hyperlipidemia with lipids controlled on rosuvastatin without SE's.Has elevated blood sugar on recent labs with glucose 120 fasting. Admits she was eating foods high in sugar the day prior.Has noticed muffled hearing in right ear and desires to have cerumen removal done. Has not been using ear wax softening drops. . 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 She was evaluated in ER on 11/01/2021 for chest pain ongoing for 3 days. She was noted to be bradycardic in ER and metoprolol was discontinued. She described chest pain has sharp pains. She has negative troponins. She was recommended to f/u with brand recorder as outpatient. She was started on amlodipine due to elevated BP reading. Her BP reading is normal in office today. She reports feeling much better. She has had no chest pain. SHe was told to take 1/2 tablet of simvastatin 40mg due to starting the amlodipine. 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 She was evaluated in ER on 11/01/2021 for chest pain ongoing for 3 days. She was noted to be bradycardic in ER and metoprolol dose was decreased. She described chest pain has sharp pains. She has negative troponins. She was recommended to f/u with brand recorder as outpatient. 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 Her tested positive for COVID 4 days ago. She has received 2 doses of the COVID vaccine but has not received a booster yet. She has had headaches, congestion, rhinorrhea. She has not had any fevers. Preventative exam Pt. here for y early physical.No new concerns at this time. Has been trying to follow diet low in sugar and fat and doing some regular exercise. ChronicHTNTakes metoprolol and losartan without SE's. BP stable without CP or SOB. Hyperlipidemia-This is well controlled on simvastatin without SE's. Lipids normal on recent labs. See lab section. Major Depression in partial remission-States mood has been stable on lexapro without SE's. States she has a counselor but not meeting with counselor recently. Some days feels more depressed but not severe. Feels diet and exercise have helped her mood. Patient sees OBGYN for well woman exams (Dr Perez). Mammogram and colonoscopy UTD. F/u depression 55 year old lia bruner who presents for 6 week followup of depression. She was evaluated at that time and Lexapro was increased to 10 mg due to depression symptoms not well controlled on Lexapro 5 mg. Patient was also referred to counselor at that time and has been talking with someone. She feels much better on this dosage medication. Chronic Conditions *See Chronic Conditions HPI chronic conditions Px Patient presents for annual physicalAcuteNo acute problemsChronicHTNTakes metoprolol and losartanHome BP readings: noneGERDWell controlled on omeprazoleHLDThis is well controlled on simvastatinDepressionThis is well controlled on lexaproH/o CVAOccurred in 2014. Patient has had cognitive impairment since that time. Patient was prescribed ASA and Plavix after CVA. She has no strokes since that time. She is taking ASA only now. Mild cognitive impairmentDue to CVA in 2015Patient sees OBGYN for well woman exams (Dr Perez). Patient would like to see a neurologist. She was following with neuro a few years ago. Mood - okay - been slightly depressed but is coping wellDiet - tries to eat healthyExercise - walks oftenTobacco - former, quit 15 years agoImmunizationsInfluenza - she will get one soon but refuses todayTdap - UTDShingrix - UTDScreeningsColonoscopy - UTD 2013 - repeat in 10 yearsPap - UTD - sees OBGYNMammogram - UTD - will get records rash bilateral palms 54 year old female who presents with rash for 3 weeks. Located on bilateral palms. Rash has worsened over time. Describes as pruritic. She has applied lotion to rash with no relief. She has no other rashes. She has no close contacts with similar rashes. She has never had a similar rash. She denies any new products, foods, etc. She denies pain. She has no recent illnesses Disability Forms Pt. here to hav e forms completed for disability that she is applying for. Pt. was a previous pt. of Dr. Olivera since 06/05 but became my patient after Dr. Olivera retired last year with her first visit with me o 04/09/18.Pt. applying for disability as she states she has been unable to work due to cognitive deficits present since CVA in 03/08. Review of prior records show that pt. 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 Pt. was d/c'd home on aspirin and statin. No recurrent strokes since that time.Pt. reports that since the stroke she has short term memory problems and has difficulty completing tasks and doing multi step tasks. Has difficulty staying focused. Forgets directions easily. States she was fired from her last job due to poor performance and interpersonal difficulties with other employees. Chronic Conditions *See Chronic Conditions HPI Chronic Conditions *See Chronic Conditions HPI 4 month Functional Status Date Functional Assessmen t No Information Instructions Date Instruction Additional Infor jolly continue close monit oring for any increased neck swelling or difficulty swallowing Related to Multiple thyroid nodules Continue to ice, fernie vate, and wear a compression wrap during the day when doing more walkingCall back if no improvement in the next few weeks and we can refer you to PT Related to Acute pain of left knee continue to limit fo ods high in sugarcheck labs for A1c in 6 months Related to Hyperglycemia continue aspirin and rosuvastatin and close monitoring Related to History of CVA (cerebrovascular accident) continue aspirin and rosuvastatin and close monitoring Related to Cerebrovascular disease Check BMP- lab slip given for QuestContinue current medicationContinue to work on increasing exercise such as walking. Continue to limit salt intake. Monitor your home blood pressure. Call our office if blood pressure is consistently over 140/90 Related to Essential hypertension Continue omeprazole and avoid foods that trigger symptoms Related to Gastroesophageal reflux disease, esophagitis presence not specified Continue rosuvastati n Continue to work on low fat diet and increase regular exercise with goal of walking at least 30 minutes 3-5 times per weekfollow up in 6 months- labs prior Related to Hyperlipidemia, unspecified hyperlipidemia type continue lexapro and bupropion R elated to Major depressive disorder in partial remission, unspecified whether recurrent continue close monit oringfollow up if any bleeding Related to Thrombocytopenia Check chest xray- we will notify you with results Related to Persistent cough Continue rosuvastati n Continue to work on low fat diet and increase regular exercise with goal of walking at least 30 minutes 3-5 times per week Related to Hyperlipidemia, unspecified hyperlipidemia type Schedule your mammog tahir and DEXA hip and spine Followup in 6 monthsContinue regular exercise and diet low in fatContinue regular follow up with your rehab care assistant for well woman exams Related to Routine medical exam Continue current med icationContinue to work on increasing exercise such as walking. Continue to limit salt intake. Monitor your home blood pressure. Call our office if blood pressure is consistently over 140/90 Related to Essential hypertension Exercise Dietary management e ducation, guidance, and counseling Related to Body mass index (BMI) 29.0-29.9, adult continue close monit oringfollow up if any difficulty swallowing or neck swelling Related to Multiple thyroid nodules continue aspirin and rosuvastatin and close monitoring Related to History of CVA (cerebrovascular accident) continue aspirin and rosuvastatin and close monitoring Related to Cerebrovascular disease Continue omeprazole and avoid foods that trigger symptoms Related to Gastroesophageal reflux disease, esophagitis presence not specified continue lexapro and bupropion R elated to Major depressive disorder in partial remission, unspecified whether recurrent Continue rosuvastati n Continue to work on low fat diet and increase regular exercise with goal of walking at least 30 minutes 3-5 times per week Related to Hyperlipidemia, unspecified hyperlipidemia type Continue current med icationContinue to work on increasing exercise such as walking. Continue to limit salt intake. Monitor your home blood pressure. Call our office if blood pressure is consistently over 140/90 Related to Essential hypertension Exercise Dietary management e ducation, guidance, and counseling Related to Body mass index (BMI) 27.0-27.9, adult Keep area clean and dryStart the clotrimazole/betamethasone cream and use twice daily and use for 1 weekthen use OTC clotrimazole cream twice daily for another 1 to 2 weeksfollow up if no improvement or any worsening Related to Rash and nonspecific skin eruption Dietary management e ducation, guidance, and counseling Related to Body mass index (BMI) 27.0-27.9, adult Continue current med icationContinue to work on increasing exercise such as walking. Continue to limit salt intake. Monitor your home blood pressure. Call our office if blood pressure is consistently over 140/90 Related to Essential hypertension Continue rosuvastati n Continue to work on low fat diet and increase regular exercise with goal of walking at least 30 minutes 3-5 times per week Related to Hyperlipidemia, unspecified hyperlipidemia type Continue omeprazole and avoid foods that trigger symptoms Related to Gastroesophageal reflux disease, esophagitis presence not specified continue lexaprobegi n taking 300 mg of bupropion. i have sent this to your mail order pharmacy Related to Major depressive disorder in partial remission, unspecified whether recurrent Followup in 6 months Get your flu vaccine this fallGet the new COVID booster vaccine at the pharmacyContinue regular exercise and diet low in fatContinue regular follow up with your rehab care assistant for well woman examsContinue yearly screening mammograms. Call to schedule soon4 Get at least 1000mg of calcium daily- can get calcium from dietary sources in addition to calcium supplement. Each dairy serving such as an 8 oz. glass of milk or a yogurt or serving of cheese contains 200mg of calcium per serving. If you take a calcium supplement, make sure it has vitamin D with it Related to Routine medical exam Dietary management e ducation, guidance, and counseling Related to Body mass index (BMI) 27.0-27.9, adult Continue current med icationContinue to work on increasing exercise such as walking. Continue to limit salt intake. Monitor your home blood pressure. Call our office if blood pressure is consistently over 140/90 Related to Essential hypertension Continue omeprazole and avoid foods that trigger symptoms Related to Gastroesophageal reflux disease, esophagitis presence not specified continue lexaproBegi n taking bupropion once daily. Let us know if you have any side effects from this medication. Let us know if symptoms are not well controlled after a few weeks and we can increase medications Related to Major depressive disorder in partial remission, unspecified whether recurrent continue to work on diet low in sugar and carbsTry to increase regular exercise Related to Elevated blood sugar Continue rosuvastati n Continue to work on low fat diet and increase regular exercise with goal of walking at least 30 minutes 3-5 times per week Related to Hyperlipidemia, unspecified hyperlipidemia type Dietary management e ducation, guidance, and counseling Related to Body mass index (BMI) 30.0-30.9, adult Cerumen removed from ear todayMonitor for ear pain, ear fullness, drainage Related to Right ear impacted cerumen Cerumen removed from ear todayMonitor for ear pain, ear fullness, drainage Related to Hearing loss of right ear, unspecified hearing loss type Dietary management e ducation, guidance, and counseling Related to Body mass index (BMI) 29.0-29.9, adult Schedule appt. for c erumen removalUse ear wax softening drops for 3 to 4 days prior Related to Right ear impacted cerumen continue to work on diet low in sugar and carbsTry to increase regular exerciseCheck labs in 6 months Related to Elevated blood sugar Continue current med icationContinue to work on increasing exercise such as walking. Continue to limit salt intake. Monitor your home blood pressure. Call our office if blood pressure is consistently over 140/90 Related to Essential hypertension Get your flu vaccine this fallGet the new bivalent COVID vaccine at the pharmacyContinue regular exercise and diet low in fatContinue regular follow up with your rehab care assistant for well woman examsContinue yearly screening mammograms Related to Routine medical exam Continue rosuvastati n Continue to work on low fat diet and increase regular exercise with goal of walking at least 30 minutes 3-5 times per week Related to Hyperlipidemia, unspecified hyperlipidemia type Dietary management e ducation, guidance, and counseling Related to Body mass index (BMI) 29.0-29.9, adult Immunizations BEGIN TAKING ROSUVAS TATIN 10 mg DAILYSTOP TAKING SIMVASTATIN Continue to work on low fat diet and increase regular exercise with goal of walking at least 30 minutes 3-5 times per week Related to Hyperlipidemia, unspecified hyperlipidemia type Followup with brand recorder, Dr Yulisa adan Related to Chest pain, unspecified type Continue to work on increasing exercise such as walking. Continue to limit salt intake. Monitor your home blood pressure. Call our office if blood pressure is consistently over 140/90 Related to Essential hypertension Dietary management e ducation, guidance, and counseling Related to Body mass index (BMI) 30.0-30.9, adult Continue omeprazole and avoid foods that trigger symptoms Related to Gastroesophageal reflux disease, esophagitis presence not specified continue lexapro Related to Haley r depressive disorder in partial remission, unspecified whether recurrent Continue to work on increasing exercise such as walking. Continue to limit salt intake. Monitor your home blood pressure. Call our office if blood pressure is consistently over 140/90 Related to Essential hypertension Cont. medication as prescribed.Cont. to work on low fat diet and increase regular exercise with goal of walking at least 30 min. 3 to 5 times per week. We recommend getting a COVID booster vaccination Related to Hyperlipidemia, unspecified hyperlipidemia type Dietary management e ducation, guidance, and counseling Related to Body mass index (BMI) 30.0-30.9, adult RAPID COVID IS NEGAT IVEHowever you have symptoms and contact with a COVID positive personRecommend isolating for 5 days and until symptoms improveTake Tylenol as needed at homeMonitor symptoms and contact us if they worsen Related to Cough continue lexaprofoll ow up with your counselor if you start feeling more depressedStatus: Able to self-manage condition. Goals: Your goal is to be active. Barriers: No barriers to goal achievement have been identified. Related to Major depressive disorder in partial remission, unspecified whether recurrent Get your flu vaccine this fallContinue regular exercise and diet low in fatContinue regular follow up with your rehab care assistant for well woman examsContinue yearly screening mammograms Related to Routine medical exam Cont. medication as prescribed.Cont. to work on low fat diet and increase regular exercise with goal of walking at least 30 min. 3 to 5 times per week. Related to Hyperlipidemia, unspecified hyperlipidemia type Continue current med ication and low salt dietcontinue regular exercisefollow up in 6 months Related to Essential hypertension Exercise Continue LexaproFoll ow with counseling services Related to Moderately severe major depression Dietary management e ducation, guidance, and counseling Related to Body mass index (BMI) 30.0-30.9, adult INCREASE LEXAPRO TO 10MG DAILYREFERRAL TO [facility] up with Yola in 6 weeks to monitor for improvement on the increased dose of lexaproStatus: Able to self-manage condition. Goals: Your goal is to be active. Barriers: No barriers to goal achievement have been identified. Related to Moderately severe major depression continue current med ication Cont. to work on increasing regular walking and cont. to limit salt intake. Monitor home BP's and call if BP consistently running above 140/90. Related to Essential hypertension Cont. medication as prescribed.Cont. to work on low fat diet and increase regular exercise with goal of walking at least 30 min. 3 to 5 times per week. Related to Hyperlipidemia, unspecified hyperlipidemia type continue daily aspir in 81mg dailyContinue good BP and lipid control Related to History of cerebrovascular accident Dietary management e ducation, guidance, and counseling Related to Body mass index (BMI) 30.0-30.9, adult Exercise Continue medication and avoid foods that trigger symptoms Related to Gastroesophageal reflux disease, esophagitis presence not specified Followup in 6 months Get regular exercise and eat a healthy diet Related to Routine medical exam This is stableStay active Relate d to Mild cognitive impairment continue daily aspir in 81mg dailyContinue good BP and lipid controlFollowup with neurologist Related to History of cerebrovascular accident continue current med ication Cont. to work on increasing regular walking and cont. to limit salt intake. Monitor home BP's and call if BP consistently running above 140/90. Related to Essential hypertension continue lexaproStat us: Able to self-manage condition. Goals: Your goal is to be active. Barriers: No barriers to goal achievement have been identified. Related to Major depression in remission Cont. medication as prescribed.Cont. to work on low fat diet and increase regular exercise with goal of walking at least 30 min. 3 to 5 times per week. Related to Hyperlipidemia, unspecified hyperlipidemia type Dietary management e ducation, guidance, and counseling Related to Body mass index (BMI) 29.0-29.9, adult Apply triamcinolone cream twice daily for no longer than one weekFollow-up with community association manager Related to Rash Cont. medication as prescribed.Cont. to work on low fat diet and increase regular exercise with goal of walking at least 30 min. 3 to 5 times per week. Related to Hyperlipidemia, unspecified hyperlipidemia type Forms completed for disability paperwork for you to return to the appropriate agency Related to Mild cognitive impairment continue lexaproStat us: Able to self-manage condition. Goals: Your goal is to be active. Barriers: No barriers to goal achievement have been identified. Related to Major depression in remission continue daily aspir in 81mg dailyContinue good BP and lipid control Related to History of cerebrovascular accident continue current med ication Cont. to work on increasing regular walking and cont. to limit salt intake. Monitor home BP's and call if BP consistently running above 140/90. Related to Essential hypertension Dietary management e ducation, guidance, and counseling Related to Body mass index (BMI) 30.0-30.9, adult Giving encouragement to exercise Related to Body mass index (BMI) 30.0-30.9, adult continue lexapro Related to Haley r depressive disorder in partial remission, unspecified whether recurrent Cont. medication as prescribed.Cont. to work on low fat diet and increase regular exercise with goal of walking at least 30 min. 3 to 5 times per week. Related to Hyperlipidemia, unspecified hyperlipidemia type continue current med icationsCont. to work on increasing regular walking and cont. to limit salt intake. Monitor home BP's and call if BP consistently running above 140/90. Related to Essential hypertension Exercise Exercise Assessments Type Assessment Date assessment Asymptomatic menopausal state Seun Patient Care Teams Name Effective Dates (start - stop) Status Members No Information
--- OUTSIDE RECORDS SUMMARY | 2024-11-12 15:16 | XMS_ITS | Referral Summary ---
Author Organization [facility] [place] [facility] Address [facility] [place] [address] Care Team Providers Care Agency Service Representative Name Role Phone Lluvia Vaughn MD Primary [...] 04/12/2020 Assessment & Plan (05/13/2020 11:26 AM TUNG NUT GROWER): Patient has a history of static cognitive [...] 04/12/2020 Assessment & Plan (05/13/2020 11:26 AM TUNG NUT GROWER): Patient will continue on aspirin for cerebrovascular prophylaxis in addition anti hypertension and anti lipid therapies. Assessment & Plan (04/12/2020 9:01 AM CDT): Patient reports history of prior cerebral ischemic infarction in 2014 for which she was hospitalized at [facility]. She continues at this time on aspirin for cerebrovascular prophylaxis in addition to any hypertension and anti lipid therapies. She does not have a history of diabetes and is a former tobacco user. Modifiable and non modifiable cerebrovascular risk factors were reviewed with patient for Education of future cerebrovascular prophylaxis. Social History Tobacco Use Types Packs/Day Years Used Date Smoking Tobacco: Former Cigarettes Q uit: 12/22/2004 Smokeless Tobacco: Never Personal Safety Answer Date Recorded Getting School Help Needed Not on file 09/06 Comments Unknown Sex and Gender Information Value Date Recorded Sex Assigned at Not on file Legal Sex Female 6:35 PM TUNG NUT GROWER Gender Identity Female 04/28/2020 7:31 AM TUNG NUT GROWER Sexual Orientation Straight 04/28/2020 7: 31 AM TUNG NUT GROWER Last Filed Vital Signs Vital Sign Reading Time Taken Comments Blood Pressure 102/76 02/19/2022 12:47 PM CDT Pulse 74 02/19/2022 12:47 PM CDT Temperature 36.6 C (97.8 F) 05/13/2020 10:42 AM TUNG NUT GROWER Respiratory Rate 15 11/01/2021 1:15 PM CDT Oxygen Saturation 99% 02/19/2022 12:47 PM CDT Inhaled Oxygen Concentration - - Weight 78 kg (172 lb) 02/19/2022 12:47 PM CDT Height 160 cm (5' 3 ) 02/19/2022 12:47 PM CDT Body Mass Index 30.47 02/19/2022 12:47 PM CDT Plan of Treatment [place] [id number] [facility] [place] [address] [place] [facility] Care Teams Agency Service Representative Relationship Specialty Start Date End Date Lluvia Vaughn MD PCP - General Internal Medicine 03/11/20
== END 2024-11-12 15:13 | disposition home or self-care (01) ==
LOC: ANHIMG 15:14
PROVIDERS: PCP Internal Medicine; Visit Provider Internal Medicine
DX: M85.89 Other specified disorders of bone density and structure, multiple sites (principal); Z78.0 Asymptomatic menopausal state; Z13.820 Encounter for screening for osteoporosis
CPT/HCPCS: 77080

== ENCOUNTER 2024-11-19 11:44 | Outpatient (CLI) | payer BC, MEDICARE, SELFPAY ==
--- NOTE | ~2024-11-19 | XR_ITS ---
Left Knee Technique: AP, lateral, and sunrise views were obtained. Clinical History: Pain Findings: No fracture or dislocation is seen. Osseous alignment is anatomic. Joint spaces are preserv ed, with minimal degenerative spurring. Soft tissues are unremarkable. No joint effusion is seen. Impression: Middle degenerative change, as above. Reviewed, dictated and finalized at location M. Impression: Middle degenerative change, as above.
== END 2024-11-19 11:45 | disposition home or self-care (01) ==
LOC: MICIMG 11:50
PROVIDERS: PCP Internal Medicine; Visit Provider Internal Medicine
DX: M17.12 Unilateral primary osteoarthritis, left knee (principal)
CPT/HCPCS: 73564